=== PATIENT | female | born 1990 | race Caucasian/White ===

== ENCOUNTER 2016-12-09 23:06 | Emergency (ER) | payer OTHER ==
[2016-12-09] MEDS ORDERED: Lidocaine 1% w/Epinephrine 1:100K 30 ML VIAL ONE (23:24)
[2016-12-09] MEDS ORDERED: Triple Antibiotic Oint 1 GM Packet ONE (23:47)
== END 2016-12-10 00:01 | disposition home or self-care (01) ==
LOC: BURERS 23:06
DX: L02.31 Cutaneous abscess of buttock (principal)
CPT/HCPCS: 10060; J2001

== ENCOUNTER 2017-05-08 15:34 | Emergency (ER) | payer OTHER ==
[2017-05-08] MEDS ORDERED: Clindamycin 150 MG CAP ONE (15:48)
[2017-05-08] MEDS ORDERED: Bupivacaine 0.5% 10 ML VIAL ONE (15:48)
== END 2017-05-08 16:05 | disposition home or self-care (01) ==
LOC: BURERS 15:34
DX: L05.01 Pilonidal cyst with abscess (principal); F17.210 Nicotine dependence, cigarettes, uncomplicated
CPT/HCPCS: 10080; J3490